=== PATIENT | male | born 1995 | race Caucasian/White ===

== ENCOUNTER → 2016-09-25 | Outpatient (CLI) | payer BC ==
[~2016-09-25] MED LIST: ALLERGY SHOTS INJ; CLIN300C10 PO; CPR500 PO; SERT50TA PO
== END | disposition home or self-care (01) ==
LOC: C.RDSM 14:00
PROVIDERS: ATTEND Physical Medicine & Rehabilitation Sports Medicine
DX: M25.572 Pain in left ankle and joints of left foot (principal)